=== PATIENT | male | born 1975 | race Caucasian/White ===

== ENCOUNTER 2021-04-12 09:54 | Emergency (ER) | payer MEDICAID ==
[~2021-04-12] VITALS: Ht 175.3 cm; Wt 81.0 kg
[2021-04-12] MEDS ORDERED: normal saline 1000ML IV soln IVB ONE (10:10)
[2021-04-12] MEDS ORDERED: ondansetron/PF 4mg/2ml inj IV ONE (10:10)
[2021-04-12 10:44] LABS: ALBUMIN 3.6 G/DL (3.4-5.0); ALKALINE PHOSPHATASE 78 IU/L (46-116); ANION GAP 9 (8-16); ASPARTATE AMINO TRANSFERASE 20 U/L (10-37); BILIRUBIN,TOTAL 0.3 MG/DL (0.1-1.0); BLOOD UREA NITROGEN 15 MG/DL (7-18); BUN/CREATININE RATIO 12.7 (5.4-32.0); CALCIUM 8.8 MG/DL (8.5-10.1); CHLORIDE 104 MMOL/L (99-107); CREATININE 1.18 MG/DL (0.60-1.10); GLUCOSE 104 MG/DL (70-104); POTASSIUM 4.2 MMOL/L (3.5-5.1); SODIUM 142 MMOL/L (135-145); TOTAL CARBON DIOXIDE 28.7 MMOL/L (24-32); TOTAL PROTEIN 7.3 G/DL (6.4-8.2); eGFR 67 ML/MIN
[2021-04-12 10:49] VITALS: BP 117/78
[2021-04-12 10:55] LABS: ALANINE AMINOTRANSFERASE < 6 U/L (12-78)
[2021-04-12 11:43] LABS: BASOPHILS % (AUTO) 0.3 % (0-1); HEMATOCRIT 42.5 % (42.0-52.0); HEMOGLOBIN 14.1 g/dl (14.0-17.9); MEAN CORPUSCULAR HEMOGLOBIN 31.5 PG (27.0-31.0); MEAN CORPUSCULAR HGB CONC 33.3 g/dL (33.0-36.5); MEAN CORPUSCULAR VOLUME 94.6 FL (78-98); MEAN PLATELET VOLUME 8.8 FL (7.4-10.4); MONOCYTES # (AUTO) 0.4 X10'3 (0-0.9); MONOCYTES % (AUTO) 16.5 % (2-12); NEUTROPHILS % (AUTO) 42.2 % (42-75); PLATELET COUNT 136 X10'3 (140-440); RED BLOOD COUNT 4.49 X10'6 (4.70-6.10); RED CELL DISTRIBUTION WIDTH 13.6 % (11.5-14.5); WHITE BLOOD COUNT 2.4 X10'3 (4.5-11.0)
[2021-04-12] MEDS ORDERED: [UNRECOGNIZED DRUG - OTHER] IV ONE ×2 (12:10→12:45)
[2021-04-12 12:19] LABS: TOTAL CELLS COUNTED 100
[2021-04-12 12:21] LABS: PLATELET ESTIMATE DECREASED
[2021-04-12] MEDS ORDERED: ALBU6.7H9 INH (12:28)
--- NOTE | 2021-04-12 13:14 | NUR ---
family has read fact sheet on regeneron, would like to receive med, no queestions
--- NOTE | 2021-04-12 14:55 | NUR ---
pt seen and assessed by provider
== END 2021-04-12 14:55 | disposition home or self-care (01) ==
LOC: ER 09:55
DX: U07.1 COVID-19 (principal); Z85.47 Personal history of malignant neoplasm of testis
CPT/HCPCS: 36415; 71045; 80053; 85007; 85025; 87635; 96360; 96361; 99291; C9803; J7030; M0243; Q0243

== ENCOUNTER 2022-01-30 20:07 | Emergency (ER) | payer BC, MEDICAID ==
[~2022-01-30] VITALS: Ht 175.3 cm; Wt 81.8 kg
[~2022-01-30 20:07] MED LIST: ALBU6.7H9 INH
[2022-01-30 20:20] VITALS: BP 116/73
== END 2022-01-31 02:11 | disposition left against medical advice (07) ==
LOC: ER 20:08
DX: R50.9 Fever, unspecified (principal); R05.9 Cough, unspecified; Z53.21 Procedure and treatment not carried out due to patient leaving prior to being seen by health care provider